=== PATIENT | female | born 1940 | race Caucasian/White ===

== ENCOUNTER 2019-05-02 19:05 | Inpatient (IN) | payer OTHER, BC ==
[~2019-05-02] VITALS: Ht 160 cm; Wt 60.8 kg
[2019-05-02 19:13] VITALS: Ht 160 cm; Wt 60.8 kg
--- NOTE | 2019-05-02 19:16 | NUR ---
PT BIB [facility], C/O 06/12 SPONTAEOUS BACK PAIN. PER MEDIC, THEY WERE CALLED TO THE SCENE FOR A WOMAN WHO STARRTED EXPERIENCING BACK PAIN "OUT OF NOWHEE" WHILE LAYING IN BED. PER MEDIC, VSS, GCS 14, A&O X2, GLUCOSE WNL EN ROUTE. ASKED PAIN ABOUT PAIN DURING TRIAGE, PT DENIES HAVING PAIN. PT ASKED [facility] C[facility], PT STS "WELL, I'M JUST LAYING HERE NOW." PT A&O X3. VSS, RESPS E/U, NAD NOTED AT THIS TIME. WILL CONTINUE TO MONITOR. AWAITING MSE.
--- NOTE | 2019-05-02 19:54 | NUR ---
SON AT BEDSIDE
--- NOTE | 2019-05-02 20:02 | NUR ---
PER SON, PT HAS BEEN VOMITING SPORADICALLY OVER THE LAST WEEK. SON STS THAT PT WAS DX W/ UTI LAST MONTH, DID ABX THERAPY, UTI CHECKED BY CLINIC AND WAS GONE. SON STS THAT PTS APPETITE HAS BEEN DECREASING OVER THE LAST MONTH, ALONG WITH AN INCREASE IN SLEEPING PATTERNS. PT STS THAT SHE IS NOT EXPERIENCING ANY PAIN WHILE LAYING STILL. PT REPORTS SHARP 10/10 PAINS IN HER RENA LOWER BACK THAT COMES W/ MOVEMENT. AT BEDSIDE FOR MSE.
--- NOTE | 2019-05-02 20:45 | NUR ---
PT STS THAT SHE IS UNABLE TO PRODUCE URINE FOR SPECIMEN AT THIS TIME. WILL REASSESS BEFORE FLUIDS ARE COMPLETE.
[2019-05-02 20:55] LABS: RED CELL DISTRIBUTION WIDTH 13.8 % (11.5-14.5)
[2019-05-02 20:56] LABS: PLATELET COUNT 105 x10^3mcL (130-400)
--- NOTE | 2019-05-02 20:57 | NUR ---
PT TAKEN TO X-RAY VIA SHREYA
[2019-05-02 21:06] LABS: CALCIUM 9.9 mg/dL (8.5-10.1); CARBON DIOXIDE 26.4 mmol/L (21-32); CHLORIDE SERUM 101 mmol/L (98-107); GLUCOSE SERUM 90 mg/dL (74-106); SODIUM SERUM 141 mmol/L (136-145)
[2019-05-02 21:11] LABS: ALBUMIN 4.4 g/dL (3.4-5.0); ALKALINE PHOSPHATASE 106 U/L (46-116); ALT/SGPT 21 U/L (14-59); AST/SGOT 46 U/L (15-37); BILIRUBIN TOTAL 0.9 mg/dL (0.20-1.00)
[2019-05-02 21:12] LABS: TOTAL PROTEIN, SERUM 8.8 g/dL (6.4-8.2)
--- NOTE | 2019-05-02 21:31 | NUR ---
PT ASSISTED TO BEDSIDE COMMODE BY URMILA VILLAR TO PROVIDE URINE SPECIMEN. PT C/O 06/12 BACK PAIN, EXACERBATED BY MOVING TO COMMODE. MADE AWARE.
[2019-05-02 21:55] LABS: microscopic required? YES; urine erythrocyte NEGATIVE (NEGATIVE)
[2019-05-02] MEDS ORDERED: ASPIR 8181 MG PO (22:48)
[2019-05-02] MEDS ORDERED: CARBIDOPA AND L1 TER PO (22:49)
[2019-05-02] MEDS ORDERED: SINEMET 25-1001 TAB PO (22:49)
[2019-05-02] MEDS ORDERED: CYANOCOBAL1000 MCG/M IM (22:50)
[2019-05-02] MEDS ORDERED: ZOLOFT100 MG PO (22:52)
[2019-05-02] MEDS ORDERED: LAM25 PO (22:56)
--- NOTE | 2019-05-02 23:22 | NUR ---
PT AWAKE AND ALERT, ANSWERING QUESTIONS APPROPRIATELY. VSS, RESPS E/U, NAD NOTED. ADMITTING MD AT BEDSIDE. AWAITING BED ASSIGNMENT. WILL CONTINUE TO MONITOR.
--- NOTE | 2019-05-02 23:59 | NUR ---
REPORT GIVEN TO MUSTAPHA VILLAR
[2019-05-03 00:43] LABS: MAGNESIUM 2.1 mg/dL (1.8-2.4); PHOSPHOROUS 3.3 mg/dL (2.5-4.9)
[2019-05-03 00:53] VITALS: BP 140/60
[2019-05-03 00:54] LABS: T3 TOTAL 0.95 ng/mL
[2019-05-03 00:55] LABS: FREE T4 1.04 ng/dL (0.76-1.46); T4(THYROXINE) 9.3 ug/dL (4.7-13.3)
--- NOTE | 2019-05-03 01:07 | NUR ---
RECEIVED PT FROM ER, PT ADMIT FOR DEHYDRATION, UTI, PT IS A/O X1, CONFUSED. SLEEPY AT THIS TIME, BUT ABLE TO FOLLOW COMMAND, ANSWER SOME QUESTIONS, LUNG SOUND CLEAR BILATERAL, NO COUGH, NO SOB, PT DENY ANY CHEST PAIN OR DISCOMFORT, BOWEL SOUND PRESENT ALL 4 QUADRANTS, NO DISTENTION. PEDAL PULSE PRESENT BOTH FEET, NO EDEMA, IV AT RIGHT AC, NO LEAKING, NO INFITLRAITON. ALL ADLS ASSIST, ALL NEED MET, CALL LIGHT IN REACH, WILL CONTINUE TO MONITOR.
--- NOTE | 2019-05-03 01:12 | NUR ---
RECEIVED REPORT FROM JIAN SANCHEZ. PATIENT WAS SEEN AND IS RESTING COMFORTABLY IN BED. NO DISTRESS NOTED. BREATHING EVEN AND ON ROOM AIR. NO SOB OR RESP DISTRESS NOTED. IV TO THE RAC. SALINE LOCK AT THIS TIME. PATENT AND INTACT. NO REDNESS OR SWELLING NOTED. DENIES PAIN. DENIES CHEST PAIN/PRESSURE. CONFUSED. BED ALARM ON. ROOM NEAR NURSES STATION. COMFORT AND SAFETY MEASURES IN PLACE. BED IS LOCKED AND IN THE LOWEST POSITION. SIDE RAILS UP X2. CALL LIGHT IS WITHIN REACH. WILL CONTINUE TO MONITOR.
--- NOTE | 2019-05-03 03:10 | NUR ---
RESTING IN BED WITH EYES CLOSED. NO DISTRESS NOTED. BREATHING EVEN AND UNLABORED ON ROOM AIR. NO S/S OF PAIN NOTED. SYMMETRIC AND EVEN CHEST RISE AND FALL. SAFETY MEASURES IN PLACE. CALL LIGHT IS WITHIN REACH. WILL CONTINUE TO MONITOR.
[2019-05-03 05:54] VITALS: BP 116/57
--- NOTE | 2019-05-03 06:10 | NUR ---
PATIENT RESTED IN LONG INTERVALS THROUGHOUT THE NIGHT. NO ACUTE CHANGES NOTED. REASSESS NEURO STATUS. PATIENT IS A/0X2 TO PERSON AND TIME. PATIENT IS STILL CONFUSED BUT FOLLOWS COMMANDS AND IS COOPERATIVE. ABLE TO MAKE NEEDS KNOWN. NO DISTRESS NOTED. DENIES CHEST PAIN/ PRESSURE. NO C/O PAIN. PATIENT HAS NOT VOIDED. STATES SHE DOESN'T HAVE TO VOID. IV TO THE RAC INFUSING NS WELL. PATENT AND INTACT. NO REDNESS OR SWELLING NOTED. SAFETY MEASURES IN PLACE. CALL LIGHT IS WITHIN REACH. WILL ENDORSE CARE TO DAY SHIFT RN.
[2019-05-03 06:35] LABS: BASOPHIL % 0.6 % (0-2); RED CELL DISTRIBUTION WIDTH 13.4 % (11.5-14.5)
[2019-05-03 06:58] LABS: CALCIUM 8.7 mg/dL (8.5-10.1); CARBON DIOXIDE 25.7 mmol/L (21-32); CHLORIDE SERUM 107 mmol/L (98-107); CREATININE SERUM 0.9 mg/dL (0.6-1.0); GLUCOSE SERUM 74 mg/dL (74-106); MAGNESIUM 1.9 mg/dL (1.8-2.4); PHOSPHOROUS 3.5 mg/dL (2.5-4.9); POTASSIUM SERUM 3.6 mmol/L (3.5-5.1); SODIUM SERUM 144 mmol/L (136-145)
[2019-05-03 07:44] LABS: microscopic required? YES; urine erythrocyte NEGATIVE (NEGATIVE)
--- NOTE | 2019-05-03 07:51 | NUR ---
AAO TO PERSON AND WHO THE PRESIDENT IS. LUNGS CTA. NO SOB. O2 SAT ON RA 96%. BS'S ACTIVE TIMES 4. SOSA WITH GENERALIZED WEAKNESS. IV SITE RAC PATENT, CDI. COOPERATIVE. CONFUSED. PERIPHERAL PULSES PALPABLE. NO EDEMA. BED ALARM ON, BED IN LOW POSITION, YELLOW NON SLIP SOCKS ARE ON AND YELLOW STAR POSTED OUTSIDE OF HER ROOM. MED SURG PATIENT. SLEEPY BUT AROUSABLE.
[2019-05-03 07:56] LABS: PLATELET COUNT 110 x10^3mcL (130-400)
[2019-05-03 07:56] LABS: AMPHETAMINE QUAL UR NONE DETECTED (See below)
[2019-05-03 08:08] VITALS: BP 134/63
[2019-05-03] MEDS ORDERED: TYL325 PO (16:28)
[2019-05-03] MEDS ORDERED: KEFLEX500 M1 PO (16:28)
--- NOTE | 2019-05-03 17:00 | NUR ---
CALLED TO JOSE TRAINING PROFESSIONAL RE; [facility] [place] [facility]. JOSE REQUESTING TO FAX THE FACE SHEET,DOCTOR'S ORDER,DISCHARGE SUMMARY ,H/P AND P.T. EVAL TO [facility] W/ FAX NO.[phone] AND TEL.NO.[phone] AND IT WENT THROUGH W/ CONFIRMATION SHEET.
[2019-05-03 17:20] VITALS: BP 123/70
[2019-05-03 17:25] VITALS: BP 123/70
--- NOTE | 2019-05-03 18:09 | NUR ---
GAVE SON EARLINE DISCHARGE INSTRUCTIONS AND PRESCRIPTION. THE SALINE LOCK WAS ALREADY REMOVED, ANGIO INTACT. SON VERBALIZED "I UNDERSTAND" TO ALL INSTRUCTIONS. SHE IS DRESSED AND READY TO GO HOME.
== END 2019-05-03 18:16 | disposition home health service (06) | DRG 690 ==
LOC: ED 19:05 → MU 23:16
PROVIDERS: Emergency Medicine; ADMIT Internal Medicine
DX: N39.0 Urinary tract infection, site not specified (principal); E86.0 Dehydration; S39.012A Strain of muscle, fascia and tendon of lower back, initial encounter; G20 Parkinson's disease; F02.80 Dementia in other diseases classified elsewhere, unspecified severity, without behavioral disturbance, psychotic disturbance, mood disturbance, and anxiety; Z68.22 Body mass index [BMI] 22.0-22.9, adult; X50.9XXA Other and unspecified overexertion or strenuous movements or postures, initial encounter; X50.1XXA Overexertion from prolonged static or awkward postures, initial encounter; Y92.009 Unspecified place in unspecified non-institutional (private) residence as the place of occurrence of the external cause
CPT/HCPCS: 82962; 84439; 97116-GP; G0378; J0696; J1885; J7030; J7060; Q0092

== ENCOUNTER 2019-05-06 12:33 | Emergency (ER) | payer BC ==
[~2019-05-06] VITALS: Ht 165.1 cm; Wt 61.2 kg
[~2019-05-06 12:33] MED LIST: ASPIR 8181 MG PO; CARBIDOPA AND L1 TER PO; CYANOCOBAL1000 MCG/M IM; KEFLEX500 M1 PO; LAM25 PO; SINEMET 25-1001 TAB PO; TYL325 PO; ZOLOFT100 MG PO
[2019-05-06 12:34] VITALS: Ht 165.1 cm; Wt 61.2 kg
[2019-05-06 13:12] LABS: BASOPHIL % 0.2 % (0-2); PLATELET COUNT 137 x10^3mcL (130-400); RED CELL DISTRIBUTION WIDTH 13.7 % (11.5-14.5)
[2019-05-06 13:43] LABS: CALCIUM 9.4 mg/dL (8.5-10.1); CARBON DIOXIDE 29.8 mmol/L (21-32); CHLORIDE SERUM 102 mmol/L (98-107); GLUCOSE SERUM 127 mg/dL (74-106); POTASSIUM SERUM 4.3 mmol/L (3.5-5.1); SODIUM SERUM 141 mmol/L (136-145)
[2019-05-06 13:48] LABS: ALBUMIN 3.9 g/dL (3.4-5.0); ALKALINE PHOSPHATASE 101 U/L (46-116); ALT/SGPT 20 U/L (14-59); AST/SGOT 32 U/L (15-37); BILIRUBIN TOTAL 0.64 mg/dL (0.20-1.00); TOTAL PROTEIN, SERUM 7.6 g/dL (6.4-8.2)
[2019-05-06 16:57] LABS: microscopic required? NO
[2019-05-06 17:40] LABS: UA SPECIFIC GRAVITY >=1.030 (1.005-1.035); urine erythrocyte NEGATIVE (NEGATIVE)
[2019-05-06 18:42] VITALS: BP 133/58
== END 2019-05-06 18:40 | disposition home or self-care (01) ==
LOC: ED 12:33
DX: E86.0 Dehydration (principal); M54.5 Low back pain; F03.90 Unspecified dementia, unspecified severity, without behavioral disturbance, psychotic disturbance, mood disturbance, and anxiety
CPT/HCPCS: J1885; J7030; Q0162